=== PATIENT | female | born 1990 | race Caucasian/White ===

== ENCOUNTER → 2016-06-07 | Outpatient (CLI) | payer MEDICAID | LOC: FIMAGING 16:10 | PROVIDERS: ATTEND Orthopaedic Surgery | DX: S92.352A Displaced fracture of fifth metatarsal bone, left foot, initial encounter for closed fracture (principal); R60.9 Edema, unspecified; M71.572 Other bursitis, not elsewhere classified, left ankle and foot ==

== ENCOUNTER 2016-07-18 11:30 | Day surgery (SDC) | payer MEDICAID ==
[2016-07-18] MEDS ORDERED: CHLORHEXIDINE GLUC HIBICLENS 118 ML BTL TP ONE (12:00)
[2016-07-18] MEDS ORDERED: ceFAZolin 2 GM/DEXTROSE 100 ML IV ONE (12:00)
[2016-07-18] MEDS ORDERED: OXYCODONE/APAP 5/325 TAB PO PRN (12:03)
[2016-07-18] MEDS ORDERED: ONDANSETRON 4 MG/2 ML VIAL IVP PRN (12:03)
[2016-07-18] MEDS ORDERED: ONDANSETRON DISINTEGRATING 4 MG TAB PO PRN (12:04)
[2016-07-18] MEDS ORDERED: LIDOCAINE 1% 2 ML INJ ONE (12:04)
[2016-07-18] MEDS ORDERED: BUPIVACAINE 0.5% 30 ML SDV ONE (12:59)
[2016-07-18] MEDS ORDERED: LR 1,000 ML IV ONE (13:02)
[2016-07-18] MEDS ORDERED: LIDOCAINE 1% 5 ML SDV ID PRN (13:02)
[2016-07-18] MEDS ORDERED: PROPOFOL 200 MG/20 ML VIAL ONE (13:11)
[2016-07-18] MEDS ORDERED: fentaNYL 100 MCG/2 ML INJ ONE ×3 (13:13→15:34)
[2016-07-18] MEDS ORDERED: MIDAZOLAM 2 MG/2 ML VIAL ONE ×2 (13:25→15:13)
[2016-07-18] MEDS ORDERED: ROPIVACAINE HCL 150 MG/30 ML INJ ONE (14:00)
[2016-07-18] MEDS ORDERED: ONDANSETRON 4 MG/2 ML VIAL ONE (14:00)
[2016-07-18] MEDS ORDERED: LIDOCAINE 2% 5 ML SDV ONE (14:00)
[2016-07-18] MEDS ORDERED: DEXAMETHASONE 4 MG/ML VIAL ONE ×2 (14:00)
[2016-07-18] MEDS ORDERED: HYDROmorphONE/DILAUDID 1 MG/ML SYR ONE (15:34)
[2016-07-18] MEDS ORDERED: HYDROmorphONE/DILAUDID 2 MG/ML INJ ONE (16:32)
--- NOTE | 2016-07-19 06:35 | GOP ---
[f rep st] OPERATIVE REPORT DATE OF OPERATION: 07/18/2016 SURGEON: Tito Gresham MD INSTRUCTION DEAN: Harpreet Galarza SA ANESTHESIA: General with a popliteal block. PREOPERATIVE DIAGNOSIS: Left ankle instability, peroneal tendinitis and anterior impingement. POSTOPERATIVE DIAGNOSIS: Left ankle instability, peroneal tendinitis and anterior impingement. PROCEDURE PERFORMED: 1. Left ankle arthroscopy with extensive debridement. 2. Left ankle peroneal debridement. 3. Left ankle Brostrom procedure. FINDINGS: SPECIMENS: Condition stable. ESTIMATED BLOOD LOSS: 5 mL. INDICATIONS: This is a 25-year-old female with symptomatic ankle instability, impingement and peroneal tendonitis. She failed conservative management including therapy. She has elected to proceed with the above-mentioned surgery. Discussed risks of incomplete pain relief, nerve injury, wound complications, vessel injury, a cartilage injury, fracture and she elected to proceed. Informed consent obtained. All questions answered. She was marked preoperatively. DESCRIPTION OF PROCEDURE: She was taken to the operative suite. Blocks administered per Anesthesia. She was positioned, sterilely prepped and draped in normal fashion. Time-out was performed verifying site, side, location and agreed by all members of the team. The procedure was begun by insufflating the joint. After tourniquet was inflated, I established a medial portal and the a lateral portal with localization. She had synovitis in the front of her ankle, which was extensive. She had this in the medial and lateral gutters as well and I debrided this completing an extensive debridement. I did not feel she needed a bony decompression. I then removed the distraction and took her through range of motion. Loading this, I did not feel she had any more impingement either of bony or soft tissue. A longitudinal incision made over the fibula. I dissected both anterior- posterior to this. I opened up the peroneal sheath posteriorly, leaving the lower part of the retinaculum intact, brought the peroneals out, inspected these. It had synovitis around each tendon, which was debrided. However, the tendons themselves appeared intact and not having longitudinal split. I do not feel that a repair needed to be performed. Of note, the tendons were replaced back in the sheath and they moved nicely and then I over sewed the retinaculum. The lateral ankle ligaments were taken off the fibula. This redundant thickened portion of the ligaments was removed. Inspected the ankle joint cartilage on the side and this looked good. I then identified the peroneals, protected these. I placed a Krackow stitch in the footprint of the ATFL, as well as the CFL. I then drilled holes with push locks in the fibula and then placed push locks in these sequentially, holding the ankle in a reduced position. This tightened her ankle up significantly. I oversewed this with #1 Vicryl, 0 Vicryl, and closed I closed her with 2-0 Vicryl, 2-0 Monocryl, and Dermabond. She was taken to PACU in stable condition. COMPLICATIONS: None. DRAINS: None. /[id number]/MODL MTDD
== END 2016-07-18 19:35 | disposition home or self-care (01) ==
LOC: FSGY 11:30
PROVIDERS: ATTEND Orthopaedic Surgery
DX: M25.372 Other instability, left ankle (principal); M76.72 Peroneal tendinitis, left leg; M25.872 Other specified joint disorders, left ankle and foot
CPT/HCPCS: C1713; J0690; J1100; J1170; J2250; J2405; J2704; J2795; J3010

== ENCOUNTER 2017-06-18 13:33 | Emergency (ER) | payer MEDICAID ==
[2017-06-18] MEDS ORDERED: ONDANSETRON 4 MG/2 ML VIAL IVP ONE ×2 (14:23→14:45)
[2017-06-18] MEDS ORDERED: NS 1,000 ML IV ONE (14:23)
[2017-06-18 14:42] LABS: PLATELET COUNT 288 10^3/uL (150-400)
[2017-06-18] MEDS ORDERED: LORazepam 2 MG/ML INJ IVP ONE (14:45)
--- NOTE | 2017-06-18 14:48 | EDPHY ---
H & P Stated Complaint: lower abdominal and bilateral groin pain Time Seen by Provider: 06/18/17 14:32 HPI/ROS: CHIEF COMPLAINT: Suprapubic abdominal pain HISTORY OF PRESENT ILLNESS: 26-year-old female with history of recurrent ovarian cyst, remote history of appendectomy, last menstrual period 3 weeks ago , complaining of sudden onset sharp stabbing suprapubic abdominal pain since this morning with associated nausea, vomiting. No radiation of pain. Feels similar to prior ovarian cyst. Denies: Urinary abnormality, bowel movement abnormality, melena, hematochezia, chest pain, trauma, fever, chills. REVIEW OF SYSTEMS: A ten point review of systems was performed and is negative with the exception of the items mentioned in the HPI PAST MEDICAL & SURGICAL HISTORY: Appendectomy. Recurrent ovarian cyst. SOCIAL HISTORY:Nonsmoker PHYSICAL EXAM (Prior to examination, patient consented to physical exam, hands were washed and my usual and customary physical exam procedures followed) 1) GENERAL: Well-developed, well-nourished, alert and oriented. Appears uncomfortable, crying, hyperventilating, guarding abdomen. 2) HEAD: Normocephalic, atraumatic 3) HEENT: Pupils equal, round, reactive to light bilaterally. Sclera anicteric. Nasopharynx, oropharynx, clear, no lesions. Moist mucous membranes 4) NECK: Full range of motion, no meningeal signs. 5) LUNGS: Clear auscultation bilaterally, no wheezes, no rhonchi, no retractions. 6) HEART: Regular rate and rhythm, no murmur, no heave, no gallop. 7) ABDOMEN: Guarding abdomen, tender to palpation suprapubic region. Negative peritoneal., 8) MUSCULOSKELETAL: Moving all extremities, no focal areas of tenderness, no obvious trauma. No peripheral edema or discoloration. 9) BACK: No CVA tenderness, no midline vertebral tenderness, no fluctuance, no step-off, no obvious trauma, no visual or palpable abnormality. 10) SKIN: No rash, no petechiae. 11) Psychiatric: Patient is oriented X 3, there is no agitation. DIFFERENTIAL DIAGNOSIS: My differential diagnosis includes, but is not limited to, acute appendicitis, acute cholecystitis, bowel obstruction, acute pancreatitis, ovarian torsion, ectopic , gastritis and urinary tract infection. The patient understands that this diagnosis is provisional and can never be 100% accurate. This is a partial list of diagnoses considered. These considerations are based on history, physical exam, past history and reassessment. - Personal History LMP (Females 10-55): 22-28 Days Ago Current Tetanus/Diphtheria Vaccine: Unsure Current Tetanus Diphtheria and Acellular Pertussis (TDAP): Unsure - Medical/Surgical History Hx Asthma: No Hx Chronic Respiratory Disease: No Hx Diabetes: No Hx Cardiac Disease: No Hx Renal Disease: No Hx Cirrhosis: No Hx Alcoholism: No Hx HIV/AIDS: No Hx Splenectomy or Spleen Trauma: No Other PMH: fibroids, endometriosis - Social History Smoking Status: Light smoker Constitutional: Initial Vital Signs Temperature (C) 36.9 C 06/18/17 13:37 Heart Rate 114 H 06/18/17 13:37 Respiratory Rate 22 H 06/18/17 13:37 Blood Pressure 106/96 H 06/18/17 13:37 O2 Sat (%) 96 06/18/17 13:37 O2 Delivery Mode Room Air Allergies/Adverse Reactions: No Known Allergies Allergy (Verified 06/18/17 13:36) Home Medications: Medication Instructions Recorded Adderall 10 MG (*) 06/20/16 BENADRYL 06/20/16 ACETAMINOPHEN 07/18/16 Aleve 220 MG (*) 07/18/16 Ibuprofen 07/18/16 Hydrocodone/APAP 5/325 [[place] 1 tab PO Q6 PRN #10 tab 06/18/17 5/325 (RX)] Hydroxyzine HCl 06/18/17 Medical Decision Making - Diagnostics Imaging Results: Imaging Impressions Pelvic/Renal Ultrasound 06/18/17 14:45 Impression: 1. Partially collapsed right ovarian cyst may represent involuting corpus luteum or post hemorrhagic cyst. Free fluid is asymmetrically more prominent on the right side as well. 2. Persistent thickening of the endometrium. Patient has a history of benign endometrial biopsy. 3. Small intramural fibroid. ED Course/Re-evaluation: 4:29 p.m.: Re-evaluation with serial examinations. At this time she is resting comfortably, pain is controlled. Reviewed her laboratory and diagnostic results with her showing an involuting right ovarian cyst. No evidence of torsion. She is not . Doubt acute surgical abdominal pathology. She feels comfortable being discharged. She has not have an OBGYN I have provided her referral information for on-call OBGYN. She feels comfortable being discharged. Usual and customary abdominal precautions instructions provided. Care of patient under supervision of secondary supervising physician Dr Forrester. - Data Points Laboratory Results: Laboratory Results 06/18/17 14:36 06/18/17 14:36 06/18/17 06/18/17 06/18/17 14:36 14:36 14:20 WBC 6.86 10^3/uL 10^3/uL (3.80-9.50) RBC 4.55 10^6/uL 10^6/uL (4.18-5.33) Hgb 13.9 g/dL g/dL (12.6-16.3) Hct 41.5 % % (38.0-47.0) MCV 91.2 fL fL (81.5-99.8) MCH 30.5 pg pg (27.9-34.1) MCHC 33.5 g/dL g/dL (32.4-36.7) RDW 11.9 % % (11.5-15.2) Plt Count 288 10^3/uL 10^3/uL (150-400) MPV 9.4 fL fL (8.7-11.7) Neut % (Auto) 58.1 % % (39.3-74.2) Lymph % (Auto) 27.7 % % (15.0-45.0) [place] % (Auto) 7.3 % % (4.5-13.0) Eos % (Auto) 6.0 % % (0.6-7.6) Baso % (Auto) 0.6 % % (0.3-1.7) Nucleat RBC Rel Count 0.0 % % (0.0-0.2) Absolute Neuts (auto) 3.99 10^3/uL 10^3/uL (1.70-6.50) Absolute Lymphs (auto) 1.90 10^3/uL 10^3/uL (1.00-3.00) Absolute Monos (auto) 0.50 10^3/uL 10^3/uL (0.30-0.80) Absolute Eos (auto) 0.41 10^3/uL H 10^3/uL (0.03-0.40) Absolute Basos (auto) 0.04 10^3/uL 10^3/uL (0.02-0.10) Absolute Nucleated RBC 0.00 10^3/uL 10^3/uL (0-0.01) Immature Gran % 0.3 % % (0.0-1.1) Immature Gran # 0.02 10^3/uL 10^3/uL (0.00-0.10) Sodium 142 mEq/L mEq/L (135-145) Potassium 4.5 mEq/L mEq/L (3.5-5.2) Chloride 109 mEq/L mEq/L (97-110) Carbon Dioxide 21 mEq/l L mEq/l (22-31) Anion Gap 12 mEq/L mEq/L (8-16) BUN 9 mg/dL mg/dL (7-23) Creatinine 0.6 mg/dL mg/dL (0.6-1.0) Estimated GFR > 60 Glucose 78 mg/dL mg/dL (70-100) Calcium 9.5 mg/dL mg/dL (8.5-10.4) Total Bilirubin 0.6 mg/dL mg/dL (0.1-1.4) Conjugated Bilirubin 0.3 mg/dL mg/dL (0.0-0.5) Unconjugated Bilirubin 0.3 mg/dL mg/dL (0.0-1.1) AST 24 IU/L IU/L (14-46) ALT 39 IU/L IU/L (9-52) Alkaline Phosphatase 59 IU/L IU/L (38-126) Total Protein 7.0 g/dL g/dL (6.3-8.2) Albumin 4.4 g/dL g/dL (3.5-5.0) Lipase 55 IU/L IU/L (23-300) Urine Color YELLOW Urine Appearance CLEAR Urine pH 6.0 (5.0-7.5) Ur Specific [place] 1.008 (1.002-1.030) Urine Protein NEGATIVE (NEGATIVE) Urine Ketones NEGATIVE (NEGATIVE) Urine Blood 1+ H (NEGATIVE) Urine Nitrate NEGATIVE (NEGATIVE) Urine Bilirubin NEGATIVE (NEGATIVE) Urine Urobilinogen NEGATIVE EU EU (0.2-1.0) Ur Leukocyte Esterase NEGATIVE (NEGATIVE) Urine RBC 1-3 /hpf /hpf (0-3) Urine WBC 1-3 /hpf /hpf (0-3) Ur Epithelial Cells TRACE /lpf /lpf (NONE-1+) Urine Bacteria 2+ /hpf H /hpf (NONE SEEN) Urine Mucus TRACE /lpf /lpf (NONE-1+) Urine Glucose NEGATIVE (NEGATIVE) Urine Test 06/18/17 14:20 WBC RBC Hgb Hct MCV MCH MCHC RDW Plt Count MPV Neut % (Auto) Lymph % (Auto) [place] % (Auto) Eos % (Auto) Baso % (Auto) Nucleat RBC Rel Count Absolute Neuts (auto) Absolute Lymphs (auto) Absolute Monos (auto) Absolute Eos (auto) Absolute Basos (auto) Absolute Nucleated RBC Immature Gran % Immature Gran # Sodium Potassium Chloride Carbon Dioxide Anion Gap BUN Creatinine Estimated GFR Glucose Calcium Total Bilirubin Conjugated Bilirubin Unconjugated Bilirubin AST ALT Alkaline Phosphatase Total Protein Albumin Lipase Urine Color Urine Appearance Urine pH Ur Specific [place] Urine Protein Urine Ketones Urine Blood Urine Nitrate Urine Bilirubin Urine Urobilinogen Ur Leukocyte Esterase Urine RBC Urine WBC Ur Epithelial Cells Urine Bacteria Urine Mucus Urine Glucose Urine Test NEGATIVE Medications Given: Discontinued Medications Sodium Chloride (Ns) 1,000 mls @ 0 mls/hr IV ONCE ONE PRN Reason: Wide Open Stop: 06/18/17 14:24 Last Admin: 06/18/17 14:34 Dose: 1,000 mls Ketorolac Tromethamine (Toradol) 15 mg IVP EDNOW ONE Stop: 06/18/17 16:09 Last Admin: 06/18/17 16:12 Dose: 15 mg Lorazepam (Ativan Injection) 1 mg IVP EDNOW ONE Stop: 06/18/17 14:46 Last Admin: 06/18/17 14:49 Dose: 1 mg Morphine Sulfate (Morphine) 4 mg IVP EDNOW ONE Stop: 06/18/17 14:46 Last Admin: 06/18/17 14:48 Dose: 4 mg Morphine Sulfate (Morphine) 4 mg IVP EDNOW ONE Stop: 06/18/17 16:09 Last Admin: 06/18/17 16:12 Dose: 4 mg Ondansetron HCl (Zofran) 4 mg IVP EDNOW ONE Stop: 06/18/17 14:24 Last Admin: 06/18/17 14:35 Dose: 4 mg Ondansetron HCl (Zofran) 4 mg IVP EDNOW ONE Stop: 06/18/17 14:46 Last Admin: 06/18/17 14:49 Dose: Not Given Departure - Departure Disposition: Home, Routine, Self-Care Clinical Impression: Ovarian cyst Qualifiers: Laterality: right Qualified Code(s): N83.201 - Unspecified ovarian cyst, right side Condition: Good Instructions: Ovarian Cyst (ED) Additional Instructions: Seek immediate medical attention if you develop new or worsening symptoms, if you develop fevers, chills, inability to tolerate oral intake or any other symptoms that concerns you. Referrals: Luciano Mcfadden MD [Medical Doctor] - 2-3 days, call for appt. (Dr. Mcfadden is an OBGYN) Prescriptions: Hydrocodone/APAP 5/325 [[place] 5/325 (RX)] 1 tab PO Q6 PRN #10 tab PRN Reason: Pain, Severe
[2017-06-18] MEDS ORDERED: KETOROLAC 15 MG/1 ML SDV IVP ONE (16:08)
[2017-06-18 16:39] VITALS: BP 106/77
== END 2017-06-18 16:42 | disposition home or self-care (01) ==
DX: N83.201 Unspecified ovarian cyst, right side (principal); F17.200 Nicotine dependence, unspecified, uncomplicated
CPT/HCPCS: 96374; J1885; J2060; J2270; J2405

== ENCOUNTER 2017-08-20 16:19 | Emergency (ER) | payer MEDICAID ==
[2017-08-20] MEDS ORDERED: LORazepam 2 MG/ML INJ IVP ONE (16:41)
[2017-08-20] MEDS ORDERED: KETOROLAC 15 MG/1 ML SDV IVP ONE (16:41)
[2017-08-20] MEDS ORDERED: NS 1,000 ML IV ONE (16:41)
[2017-08-20] MEDS ORDERED: ONDANSETRON 4 MG/2 ML VIAL IVP ONE ×2 (16:41→18:11)
--- NOTE | 2017-08-20 16:47 | EDPHY ---
H & P Stated Complaint: Bilat lower abdo pain since Sunday. Time Seen by Provider: 08/20/17 16:32 HPI/ROS: CHIEF COMPLAINT: Suprapubic pain HISTORY OF PRESENT ILLNESS: 26-year-old female with history of recurrent ovarian cyst, history of endometriosis, uterine fibroids, remote history of appendectomy, last menstrual period 25 days ago, complaining of 2 days of suprapubic abdominal pain, nausea, vomiting. Feels similar to her prior episodes of ovarian cyst. She was seen the ER 06/18/2017 for similar complaint. He states that this feels same as that episode. She has been unable to tolerate oral intake for the past 2 days. Bowel movements have been normal. Urine output has been decreased. No dysuria no hematuria , no increased frequency. No back or flank pain. No fever or chills PRIMARY CARE PROVIDER: REVIEW OF SYSTEMS: A ten point review of systems was performed and is negative with the exception of the items mentioned in the HPI PAST MEDICAL & SURGICAL HISTORY: No pertinent medical or surgical history SOCIAL HISTORY:Nonsmoker PHYSICAL EXAM (Prior to examination, patient consented to physical exam, hands were washed and my usual and customary physical exam procedures followed) 1) GENERAL: Well-developed, well-nourished, alert and oriented. Appears to be in no acute distress. 2) HEAD: Normocephalic, atraumatic 3) HEENT: Pupils equal, round, reactive to light bilaterally. Sclera anicteric. Nasopharynx, oropharynx, clear, no lesions. Dry mucous membranes 4) NECK: Full range of motion, no meningeal signs. 5) LUNGS: Clear auscultation bilaterally, no wheezes, no rhonchi, no retractions. 6) HEART: Regular rate and rhythm, no murmur, no heave, no gallop. 7) ABDOMEN: No guarding, tender to palpation suprapubic region, negative McBurney's, negative Castro's, negative Rovsing's, negative peritoneal sign, 8) MUSCULOSKELETAL: Moving all extremities, no focal areas of tenderness, no obvious trauma. No peripheral edema or discoloration. 9) BACK: No CVA tenderness 10) SKIN: No rash, no petechiae. 11) Psychiatric: Patient is oriented X 3, there is no agitation. DIFFERENTIAL DIAGNOSIS: My differential diagnosis includes, but is not limited to, acute appendicitis, acute cholecystitis, bowel obstruction, acute pancreatitis, ovarian torsion, ectopic , gastritis and urinary tract infection. The patient understands that this diagnosis is provisional and can never be 100% accurate. This is a partial list of diagnoses considered. These considerations are based on history, physical exam, past history and reassessment. - Personal History LMP (Females 10-55): 22-28 Days Ago Current Tetanus Diphtheria and Acellular Pertussis (TDAP): Unsure - Medical/Surgical History Hx Asthma: No Hx Chronic Respiratory Disease: No Hx Diabetes: No Hx Cardiac Disease: No Hx Renal Disease: No Hx Cirrhosis: No Hx Alcoholism: No Hx HIV/AIDS: No Hx Splenectomy or Spleen Trauma: No Other PMH: fibroids, endometriosis. - Social History Smoking Status: Light smoker Constitutional: Initial Vital Signs Temperature (C) 36.7 C 08/20/17 16:20 Heart Rate 63 08/20/17 16:20 Respiratory Rate 18 08/20/17 16:20 Blood Pressure 143/95 H 08/20/17 16:20 O2 Sat (%) 99 08/20/17 16:20 O2 Delivery Mode Room Air Allergies/Adverse Reactions: No Known Allergies Allergy (Verified 06/18/17 13:36) Home Medications: Medication Instructions Recorded Adderall 10 MG (*) 06/20/16 BENADRYL 06/20/16 ACETAMINOPHEN 07/18/16 Aleve 220 MG (*) 07/18/16 Ibuprofen 07/18/16 Hydrocodone/APAP 5/325 [[place] 1 tab PO Q6 PRN #10 tab 06/18/17 5/325 (RX)] Hydroxyzine HCl 06/18/17 Ondansetron Odt [Zofran Odt] 4 mg PO Q4PRN PRN #10 tab 08/20/17 oxyCODONE/APAP 5/325 [Percocet 1 tab PO Q6 #10 tab 08/20/17 5/325] Medical Decision Making - Diagnostics Imaging Results: Imaging Impressions Pelvic/Renal Ultrasound 08/20/17 16:42 Impression: 1. No ovarian torsion or significant free fluid. 2. Bilateral hypoechoic ovarian cysts with internal echoes, two in the right ovary measuring up to 2.5 x 2.4 x 2.1 cm, and one in the left measuring 2.9 x 2.7 x 2.3 cm, with the left ovarian complex cyst appearing larger since the ultrasound in June 2017, representing hemorrhagic cysts versus endometriomas. 3. Posterior fundal uterine fibroid measuring 1.6 x 1.6 x 1.6 cm, similar to the previous study. 4. Abnormal endometrial thickening measuring 24 mm. Findings and recommendations discussed with Emergency Department physician, Gregory Vu PA-C at 1751 hours on August 20, 2017. Final report concurs with initial preliminary interpretation. Images reviewed by myself ED Course/Re-evaluation: Re-evaluation with serial exams. Her pain and nausea are controlled. Discussed her diagnostic results. Doubt ovarian torsion, doubt ectopic , doubt acute surgical abdominal pathology. Highly recommend she follow-up with OBGYN. She informs me that she has an appointment with her OBGYN tomorrow. I strongly recommend she keep this appointment. Given copies of her diagnostic studies. Usual customary abdominal precautions instructions provided. I saw this patient independently based on established practice protocols. Care of patient under supervision of secondary supervising physician Dr Leon . - Data Points Laboratory Results: Laboratory Results 08/20/17 16:29 08/20/17 16:29 08/20/17 08/20/17 08/20/17 16:29 16:29 16:29 WBC RBC Hgb Hct MCV MCH MCHC RDW Plt Count MPV Neut % (Auto) Lymph % (Auto) [place] % (Auto) Eos % (Auto) Baso % (Auto) Nucleat RBC Rel Count Absolute Neuts (auto) Absolute Lymphs (auto) Absolute Monos (auto) Absolute Eos (auto) Absolute Basos (auto) Absolute Nucleated RBC Immature Gran % Immature Gran # Sodium 139 mEq/L mEq/L (135-145) Potassium 3.9 mEq/L mEq/L (3.3-5.0) Chloride 104 mEq/L mEq/L (97-110) Carbon Dioxide 24 mEq/l mEq/l (22-31) Anion Gap 11 mEq/L mEq/L (8-16) BUN 11 mg/dL mg/dL (7-23) Creatinine 0.7 mg/dL mg/dL (0.6-1.0) Estimated GFR > 60 Glucose 82 mg/dL mg/dL (70-100) Calcium 9.6 mg/dL mg/dL (8.5-10.4) Total Bilirubin 0.4 mg/dL mg/dL (0.1-1.4) Conjugated Bilirubin 0.2 mg/dL mg/dL (0.0-0.5) Unconjugated Bilirubin 0.2 mg/dL mg/dL (0.0-1.1) AST 23 IU/L IU/L (14-46) ALT 29 IU/L IU/L (9-52) Alkaline Phosphatase 91 IU/L IU/L (38-126) Total Protein 7.8 g/dL g/dL (6.3-8.2) Albumin 4.6 g/dL g/dL (3.5-5.0) Lipase 110 IU/L IU/L (23-300) Beta HCG, Qual NEGATIVE Urine Color YELLOW Urine Appearance CLEAR Urine pH 6.0 (5.0-7.5) Ur Specific [place] 1.010 (1.002-1.030) Urine Protein NEGATIVE (NEGATIVE) Urine Ketones TRACE H (NEGATIVE) Urine Blood 1+ H (NEGATIVE) Urine Nitrate NEGATIVE (NEGATIVE) Urine Bilirubin NEGATIVE (NEGATIVE) Urine Urobilinogen NEGATIVE EU EU (0.2-1.0) Ur Leukocyte Esterase NEGATIVE (NEGATIVE) Urine RBC 1-3 /hpf /hpf (0-3) Urine WBC 1-3 /hpf /hpf (0-3) Ur Epithelial Cells TRACE /lpf /lpf (NONE-1+) Urine Bacteria 1+ /hpf H /hpf (NONE SEEN) Urine Mucus TRACE /lpf /lpf (NONE-1+) Urine Glucose NEGATIVE (NEGATIVE) 08/20/17 16:29 WBC 7.77 10^3/uL 10^3/uL (3.80-9.50) RBC 4.51 10^6/uL 10^6/uL (4.18-5.33) Hgb 13.8 g/dL g/dL (12.6-16.3) Hct 41.4 % % (38.0-47.0) MCV 91.8 fL fL (81.5-99.8) MCH 30.6 pg pg (27.9-34.1) MCHC 33.3 g/dL g/dL (32.4-36.7) RDW 13.3 % % (11.5-15.2) Plt Count 359 10^3/uL 10^3/uL (150-400) MPV 9.1 fL fL (8.7-11.7) Neut % (Auto) 52.9 % % (39.3-74.2) Lymph % (Auto) 35.8 % % (15.0-45.0) [place] % (Auto) 7.1 % % (4.5-13.0) Eos % (Auto) 3.7 % % (0.6-7.6) Baso % (Auto) 0.4 % % (0.3-1.7) Nucleat RBC Rel Count 0.0 % % (0.0-0.2) Absolute Neuts (auto) 4.11 10^3/uL 10^3/uL (1.70-6.50) Absolute Lymphs (auto) 2.78 10^3/uL 10^3/uL (1.00-3.00) Absolute Monos (auto) 0.55 10^3/uL 10^3/uL (0.30-0.80) Absolute Eos (auto) 0.29 10^3/uL 10^3/uL (0.03-0.40) Absolute Basos (auto) 0.03 10^3/uL 10^3/uL (0.02-0.10) Absolute Nucleated RBC 0.00 10^3/uL 10^3/uL (0-0.01) Immature Gran % 0.1 % % (0.0-1.1) Immature Gran # 0.01 10^3/uL 10^3/uL (0.00-0.10) Sodium Potassium Chloride Carbon Dioxide Anion Gap BUN Creatinine Estimated GFR Glucose Calcium Total Bilirubin Conjugated Bilirubin Unconjugated Bilirubin AST ALT Alkaline Phosphatase Total Protein Albumin Lipase Beta HCG, Qual Urine Color Urine Appearance Urine pH Ur Specific [place] Urine Protein Urine Ketones Urine Blood Urine Nitrate Urine Bilirubin Urine Urobilinogen Ur Leukocyte Esterase Urine RBC Urine WBC Ur Epithelial Cells Urine Bacteria Urine Mucus Urine Glucose Medications Given: Discontinued Medications Hydromorphone HCl (Dilaudid) 1 mg IVP EDNOW ONE Stop: 08/20/17 17:32 Last Admin: 08/20/17 17:34 Dose: 1 mg Sodium Chloride (Ns) 1,000 mls @ 0 mls/hr IV ONCE ONE PRN Reason: Wide Open Stop: 08/20/17 16:42 Last Admin: 08/20/17 16:48 Dose: 1,000 mls Ketorolac Tromethamine (Toradol) 15 mg IVP EDNOW ONE Stop: 08/20/17 16:42 Last Admin: 08/20/17 16:47 Dose: 15 mg Lorazepam (Ativan Injection) 1 mg IVP EDNOW ONE Stop: 08/20/17 16:42 Last Admin: 08/20/17 16:48 Dose: 1 mg Ondansetron HCl (Zofran) 4 mg IVP EDNOW ONE Stop: 08/20/17 16:42 Last Admin: 08/20/17 16:47 Dose: 4 mg Ondansetron HCl (Zofran) 4 mg IVP EDNOW ONE Stop: 08/20/17 18:12 Last Admin: 08/20/17 18:13 Dose: 4 mg Departure - Departure Disposition: Home, Routine, Self-Care Clinical Impression: Endometriosis Uterine fibroid Qualifiers: Uterine leiomyoma location: unspecified location Qualified Code(s): D25.9 - Leiomyoma of uterus, unspecified Condition: Good Instructions: Endometriosis (ED) Additional Instructions: Return to the emergency department if you develop new or worsening symptoms, inability to tolerate oral intake or any other symptoms that concern you Referrals: keep, your appointment with your private duty rn tomorrow [Other] - As per Instructions Prescriptions: Ondansetron Odt [Zofran Odt] 4 mg PO Q4PRN PRN #10 tab PRN Reason: Nausea oxyCODONE/APAP 5/325 [Percocet 5/325] 1 tab PO Q6 #10 tab
[2017-08-20 16:50] LABS: PLATELET COUNT 359 10^3/uL (150-400)
[2017-08-20] MEDS ORDERED: HYDROmorphONE/DILAUDID 1 MG/ML INJ IVP ONE (17:31)
[2017-08-20] MEDS ORDERED: ONDANSETRON 4 MG/2 ML VIAL ONE (18:10)
[2017-08-20 18:14] VITALS: BP 115/65
== END 2017-08-20 19:00 | disposition home or self-care (01) ==
DX: N80.9 Endometriosis, unspecified (principal); D25.9 Leiomyoma of uterus, unspecified; F17.200 Nicotine dependence, unspecified, uncomplicated; R11.10 Vomiting, unspecified; Z90.89 Acquired absence of other organs
CPT/HCPCS: 96374; J1170; J1885; J2060; J2405

== ENCOUNTER 2017-08-21 20:09 | Emergency (ER) | payer MEDICAID ==
--- NOTE | 2017-08-21 20:44 | EDPHY ---
H & P Stated Complaint: vomiting- worsening pain since lat night Time Seen by Provider: 08/21/17 20:27 HPI/ROS: CHIEF COMPLAINT: Abdominal pain, vomiting HISTORY OF PRESENT ILLNESS: The patient is a 26 y/o female with a history of recurrent ovarian cysts and uterine fibroids arriving with her girlfriend complaining of persisting abdominal pain and vomiting worsening since she began menstruating this afternoon about 5.5 hours ago. She developed suprapubic abdominal pain on Sunday, 3 days ago, and came to the ED yesterday for evaluation. A pelvic US at that time showed bilateral ovarian cysts, no torsion or free fluid. She was discharged with Percocet and recommendation to follow up with her OBGYN today, which she did. The OBGYN performed a pelvic exam and noticed adnexal tenderness per the patient. The physician attributed her symptoms to fibroids, cysts, and possible endometriosis, though the patient has not been formally diagnosed with endometriosis. She recommended starting control, but the patient is reluctant to start medication and wants "to research it first." This afternoon she began menstruating "and within that half-hour the most excruciating pain ever like that feeling when you first break a bone and you lose your wind" and "my vagina and rectum feel like they're falling out of my body." She normally has painful periods manageable with ibuprofen, but her pain has only been partially controlled with Percocet. The pain is diffuse but worse in her lower abdomen. Nothing seems to make it appreciably better or worse. She has also vomited several times today and is unable to keep food down. No fever, urinary symptoms, trauma. REVIEW OF SYSTEMS: A ten point review of systems was performed and is negative with the exception of the items mentioned in the HPI. Past medical history: 1. Recurrent ovarian cysts with rupture 2. Uterine fibroids 3. ADHD - Adderall 4. Anxiety - Hydroxyzine Past surgical history: Appendectomy Family history: Noncontributory Social history: Girlfriend at bedside. Occasional tobacco use. Drinks alcohol socially. 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 OBGYN: [facility] General Appearance: Alert. Tearful. Vital signs reviewed. Blood pressure 132/ 97. Eyes: Pupils equal and round, no conjunctival injection, no discharge. Anicteric. ENT, Mouth: Mucous membranes are moist, no oropharyngeal erythema or edema. Neck: No lymphadenopathy, supple. Respiratory: Lungs are clear to auscultation; no wheezes, rales, or rhonchi. Cardiovascular: Regular rate and rhythm; no murmur, rub, or gallop. Gastrointestinal: Abdomen is soft and diffusely, tender worse in LLQ, no guarding, no masses or organomegaly. Skin: Warm and dry, no rashes on exposed skin, normal color. Back: Nontender to palpation over the thoracolumbar spine. No CVAT. Extremities: No lower extremity edema, no calf tenderness or swelling. Neurological: Alert and oriented. Moving all four extremities easily and equally. Psychiatric: Normal affect. - Personal History LMP (Females 10-55): Now - Medical/Surgical History Hx Asthma: No Hx Chronic Respiratory Disease: No Hx Diabetes: No Hx Cardiac Disease: No Hx Renal Disease: No Hx Cirrhosis: No Hx Alcoholism: No Hx HIV/AIDS: No Hx Splenectomy or Spleen Trauma: No Other PMH: fibroids, endometriosis. - Social History Smoking Status: Light smoker Constitutional: Initial Vital Signs Temperature (C) 36.9 C 08/21/17 20:15 Heart Rate 89 08/21/17 20:15 Respiratory Rate 20 08/21/17 20:15 Blood Pressure 132/97 H 08/21/17 20:15 O2 Sat (%) 97 08/21/17 20:15 O2 Delivery Mode Room Air Allergies/Adverse Reactions: No Known Allergies Allergy (Verified 08/21/17 20:14) Home Medications: Medication Instructions Recorded Adderall 10 MG (*) 06/20/16 BENADRYL 06/20/16 ACETAMINOPHEN 07/18/16 Aleve 220 MG (*) 07/18/16 Ibuprofen 07/18/16 Hydrocodone/APAP 5/325 [[place] 1 tab PO Q6 PRN #10 tab 06/18/17 5/325 (RX)] Hydroxyzine HCl 06/18/17 Ondansetron Odt [Zofran Odt] 4 mg PO Q4PRN PRN #10 tab 08/20/17 oxyCODONE/APAP 5/325 [Percocet 1 tab PO Q6 #10 tab 08/20/17 5/325] Medical Decision Making ED Course/Re-evaluation: This is a 26 y/o female with history of uterine fibroids and recurrent ovarian cysts who presents with a 5.5-hour history of severe lower abdominal pain since she began menstruating in the setting of 3 days of lower abdominal pain and vomiting. OBGYN today examined her and recommended starting hormonal control for probable endometriosis, but the patient did not feel ready to pursue this. On exam she is tearful and has diffuse abdominal tenderness, worse on the right. No guarding. Plan for IV, symptomatic management, and pelvic US. 1L IV NS, 4mg IV Zofran, 15mg IV Toradol, and 1mg IV Dilaudid ordered. Given the abrupt worsening of her symptoms, will obtain pelvic ultrasound to assess for ovarian torsion. Pelvic US: Essentially unchanged from yesterday. Normal color flow, no evidence of torsion. I have chosen not to repeat laboratory work that was done yesterday. Her re-evaluated the patient at 10 40 p.m.. She had complained of a resurfacing of her pain just prior to that was given a 2nd dose of Dilaudid IV. We spoke at some length of about the possibility of her pain being due to endometriosis versus ovarian cysts. She was reassured that she does not have ovarian torsion. I have encouraged her to follow up with OBGYN and pursue the option of control pills, as recommended today. She feels that she can return home. She has oxycodone and Zofran at home, from last night's visit. Differential Diagnosis: Abdominal pain including but not limited to appendicitis, cholecystitis, gastritis, ovarian torsion, ruptured ovarian cysts, ectopic , and urinary tract infection. - Data Points Medications Given: Discontinued Medications Hydromorphone HCl (Dilaudid) 1 mg IVP EDNOW ONE Stop: 08/21/17 21:02 Last Admin: 08/21/17 21:25 Dose: 1 mg Sodium Chloride (Ns) 1,000 mls @ 0 mls/hr IV EDNOW ONE; Wide Open PRN Reason: Protocol Stop: 08/21/17 21:04 Last Admin: 08/21/17 21:21 Dose: 1,000 mls Ketorolac Tromethamine (Toradol) 15 mg IVP EDNOW ONE Stop: 08/21/17 21:02 Last Admin: 08/21/17 21:25 Dose: 15 mg Ondansetron HCl (Zofran) 4 mg IVP EDNOW ONE Stop: 08/21/17 21:01 Last Admin: 08/21/17 21:25 Dose: 4 mg Ondansetron HCl (Zofran) 4 mg IVP EDNOW ONE Stop: 08/21/17 22:17 Last Admin: 08/21/17 22:19 Dose: 4 mg Departure - Departure Disposition: Home, Routine, Self-Care Clinical Impression: Abdominal pain Qualifiers: Abdominal location: generalized Qualified Code(s): R10.84 - Generalized abdominal pain Condition: Good Instructions: Endometriosis (ED), Ovarian Cyst (ED) Additional Instructions: Use the Zofran that you have for nausea vomiting. You can let 1 of them dissolve under your tongue every 4 hr as needed. Continue with the oxycodone as needed. As we discussed, I think that an anti- inflammatory medication is most likely to be helpful for you. I recommend that you take ibuprofen 800 mg every 6-8 hours. Take this with some food. Please follow up with OBGYN. Dr. Fior Doshi is public information [facility] I am providing her name and phone number. Referrals: Fior Doshi, [Doctor of Osteopathy] - As per Instructions Report Scribed for: Maya Robbins Report Scribed by: Mandy Kebede Date of Report: 08/21/17 Time of Report: 20:46 Physician Review and Approval Statement: 08/21/17 20:44 Portions of this note were transcribed by the medical legal investigator. I, Dr. Maya Robbins, personally performed the history, physical exam, and medical decision- making; and confirmed the accuracy of the information in the transcribed note.
[2017-08-21] MEDS ORDERED: ONDANSETRON 4 MG/2 ML VIAL IVP ONE ×2 (21:00→22:16)
[2017-08-21] MEDS ORDERED: HYDROmorphONE/DILAUDID 2 MG/ML INJ IVP ONE (21:01)
[2017-08-21] MEDS ORDERED: KETOROLAC 30 MG/1 ML SDV IVP ONE (21:01)
[2017-08-21] MEDS ORDERED: NS 1,000 ML IV ONE (21:03)
[2017-08-21 23:03] VITALS: BP 127/72
== END 2017-08-21 23:05 | disposition home or self-care (01) ==
DX: R10.84 Generalized abdominal pain (principal); E86.9 Volume depletion, unspecified; F17.200 Nicotine dependence, unspecified, uncomplicated; Z90.49 Acquired absence of other specified parts of digestive tract
CPT/HCPCS: 96374; J1170; J1885; J2405

== ENCOUNTER → 2017-11-27 | Outpatient (CLI) | payer MEDICAID | LOC: CIMAGING 11:27 | PROVIDERS: ATTEND Family Medicine | DX: S83.012A Lateral subluxation of left patella, initial encounter (principal) | CPT/HCPCS: 73562-PO ==

== ENCOUNTER → 2017-12-09 | Outpatient (CLI) | payer MEDICAID | LOC: FIMAGING 13:45 | PROVIDERS: ATTEND Orthopaedic Surgery | DX: M22.42 Chondromalacia patellae, left knee (principal); M22.3X2 Other derangements of patella, left knee; M76.52 Patellar tendinitis, left knee ==

== ENCOUNTER 2018-01-11 14:23 | Emergency (ER) | payer MEDICAID ==
[2018-01-11] MEDS ORDERED: ONDANSETRON DISINTEGRATING 4 MG TAB PO ONE (16:05)
[2018-01-11] MEDS ORDERED: NS 1,000 ML IV ONE (16:42)
--- NOTE | 2018-01-11 16:57 | EDPHY ---
H & P Stated Complaint: L flank pain x 1wk c periodic diarrhea, rash, weakness, pains in legs Time Seen by Provider: 01/11/18 16:48 HPI/ROS: CHIEF COMPLAINT: Back pain, abdominal pain, flu-like symptoms HISTORY OF PRESENT ILLNESS: The patient presents the ED with a one-week history of lower back pain. The patient describes primarily bilateral sacroiliac pain. She also feels she has developed a flu-like illness. She denies any vomiting or diarrhea. She denies significant respiratory symptoms. The patient has been taking [id number] medications without significant improvement of her symptoms. The patient denies dysuria. The patient denies recent surgery. She denies any acute numbness or weakness. The patient denies any history of fall or trauma. She denies bowel or bladder dysfunction. REVIEW OF SYSTEMS: A comprehensive 10 point review of systems is otherwise negative aside from elements mentioned in the history of present illness. Source: Patient Exam Limitations: No limitations - Personal History Current Tetanus/Diphtheria Vaccine: Unsure - Medical/Surgical History Hx Asthma: No Hx Chronic Respiratory Disease: No Hx Diabetes: No Hx Cardiac Disease: No Hx Renal Disease: No Hx Cirrhosis: No Hx Alcoholism: No Hx HIV/AIDS: No Hx Splenectomy or Spleen Trauma: No Other PMH: fibroids, endometriosis.ovarian cysts, appendectomy, ankle surgery - Social History Smoking Status: Light smoker - Physical Exam Exam: General Appearance: Alert, no distress Eyes: Pupils equal and round no pallor or injection ENT, Mouth: Mucous membranes moist Respiratory: There are no retractions, lungs are clear to auscultation Cardiovascular: Regular rate and rhythm Gastrointestinal: Abdomen is soft and nontender, no masses, bowel sounds normal Neurological: A&O, normal motor function, normal sensory exam, normal cranial nerves Skin: Warm and dry, no rashes Musculoskeletal: Bilateral sacroiliac tenderness Extremities: symmetrical, full range of motion Psychiatric: Patient is oriented X 3, there is no agitation Constitutional: Initial Vital Signs Temperature (C) 37.2 C 01/11/18 14:41 Heart Rate 116 H 01/11/18 14:41 Respiratory Rate 18 01/11/18 14:41 Blood Pressure 142/104 H 01/11/18 14:41 O2 Sat (%) 97 01/11/18 14:41 O2 Delivery Mode Room Air Allergies/Adverse Reactions: No Known Allergies Allergy (Verified 01/11/18 14:41) Home Medications: Medication Instructions Recorded Adderall 10 MG (*) 06/20/16 BENADRYL 06/20/16 ACETAMINOPHEN 07/18/16 Aleve 220 MG (*) 07/18/16 Ibuprofen 07/18/16 Hydrocodone/APAP 5/325 [[place] 1 tab PO Q6 PRN #10 tab 06/18/17 5/325 (RX)] Hydroxyzine HCl 06/18/17 Ondansetron Odt [Zofran Odt] 4 mg PO Q4PRN PRN #10 tab 08/20/17 oxyCODONE/APAP 5/325 [Percocet 1 tab PO Q6 #10 tab 08/20/17 5/325] Medical Decision Making ED Course/Re-evaluation: The patient had an IV established. She received a L normal saline. Screening laboratory studies and urinalysis have been ordered. The patient was given Zofran. She was also given 1 mg of Ativan. The patient is noted to have a normal white blood cell count. Her metabolic panel is unremarkable. Patient's back pain is consistent with sacroiliitis. The patient did received Toradol in the emergency department. Urinalysis demonstrates no evidence of an infection or pyelonephritis. The patient's back pain seems to be mostly musculoskeletal in nature. I will provide the patient a prescription for Lidoderm patches. Differential Diagnosis: Differential diagnosis considered includes pyelonephritis, viral syndrome, mesenteric adenitis, ectopic - Data Points Laboratory Results: Laboratory Results 01/11/18 16:50 01/11/18 16:50 01/11/18 01/11/18 01/11/18 18:37 16:50 16:50 WBC 8.90 10^3/uL 10^3/uL (3.80-9.50) RBC 4.62 10^6/uL 10^6/uL (4.18-5.33) Hgb 14.0 g/dL g/dL (12.6-16.3) Hct 42.0 % % (38.0-47.0) MCV 90.9 fL fL (81.5-99.8) MCH 30.3 pg pg (27.9-34.1) MCHC 33.3 g/dL g/dL (32.4-36.7) RDW 12.4 % % (11.5-15.2) Plt Count 360 10^3/uL 10^3/uL (150-400) MPV 8.8 fL fL (8.7-11.7) Neut % (Auto) 60.1 % % (39.3-74.2) Lymph % (Auto) 31.0 % % (15.0-45.0) [place] % (Auto) 5.4 % % (4.5-13.0) Eos % (Auto) 2.9 % % (0.6-7.6) Baso % (Auto) 0.4 % % (0.3-1.7) Nucleat RBC Rel Count 0.0 % % (0.0-0.2) Absolute Neuts (auto) 5.34 10^3/uL 10^3/uL (1.70-6.50) Absolute Lymphs (auto) 2.76 10^3/uL 10^3/uL (1.00-3.00) Absolute Monos (auto) 0.48 10^3/uL 10^3/uL (0.30-0.80) Absolute Eos (auto) 0.26 10^3/uL 10^3/uL (0.03-0.40) Absolute Basos (auto) 0.04 10^3/uL 10^3/uL (0.02-0.10) Absolute Nucleated RBC 0.00 10^3/uL 10^3/uL (0-0.01) Immature Gran % 0.2 % % (0.0-1.1) Immature Gran # 0.02 10^3/uL 10^3/uL (0.00-0.10) Sodium 138 mEq/L mEq/L (135-145) Potassium 4.1 mEq/L mEq/L (3.3-5.0) Chloride 107 mEq/L mEq/L (97-110) Carbon Dioxide 23 mEq/l mEq/l (22-31) Anion Gap 8 mEq/L mEq/L (6-14) BUN 6 mg/dL L mg/dL (7-23) Creatinine 0.7 mg/dL mg/dL (0.6-1.0) Estimated GFR > 60 Glucose 79 mg/dL mg/dL (70-100) Calcium 9.8 mg/dL mg/dL (8.5-10.4) Urine Color YELLOW Urine Appearance CLEAR Urine pH 5.0 (5.0-7.5) Ur Specific Sells 1.009 (1.002-1.030) Urine Protein NEGATIVE (NEGATIVE) Urine Ketones NEGATIVE (NEGATIVE) Urine Blood 1+ H (NEGATIVE) Urine Nitrate NEGATIVE (NEGATIVE) Urine Bilirubin NEGATIVE (NEGATIVE) Urine Urobilinogen NEGATIVE EU EU (0.2-1.0) Ur Leukocyte Esterase NEGATIVE (NEGATIVE) Urine RBC 1-3 /hpf /hpf (0-3) Urine WBC 1-3 /hpf /hpf (0-3) Ur Epithelial Cells TRACE /lpf /lpf (NONE-1+) Urine Bacteria 1+ /hpf H /hpf (NONE SEEN) Urine Mucus TRACE /lpf /lpf (NONE-1+) Urine Glucose NEGATIVE (NEGATIVE) Medications Given: Discontinued Medications Sodium Chloride (Ns) 1,000 mls @ 0 mls/hr IV ONCE ONE; Wide Open PRN Reason: Protocol Stop: 01/11/18 16:43 Last Admin: 01/11/18 16:48 Dose: 1,000 mls Lorazepam (Ativan Injection) 1 mg IVP EDNOW ONE Stop: 01/11/18 18:10 Last Admin: 01/11/18 18:26 Dose: 1 mg Ondansetron HCl (Zofran Odt) 4 mg PO EDNOW ONE Stop: 01/11/18 16:06 Last Admin: 01/11/18 16:10 Dose: 4 mg Departure - Departure Disposition: Home, Routine, Self-Care Clinical Impression: Sacroiliitis Condition: Good Instructions: Sacroiliitis (ED), Lower Back Exercises (ED) Additional Instructions: 1. Take Ibuprofen or Motrin 600 mg by mouth three times a day. 2. Lidocaine patches as needed for pain 3. Laboratory testing in the emergency department today demonstrates no evidence of an infection, critical anemia or significant electrolyte disturbance. 4. I do believe the your having musculoskeletal back pain and may have have a mild viral illness. Referrals: Lázaro Lazcano DO [Primary Care Provider] - As per Instructions
[2018-01-11 17:03] LABS: PLATELET COUNT 360 10^3/uL (150-400)
[2018-01-11] MEDS ORDERED: LORazepam 2 MG/ML INJ IVP ONE (18:09)
[2018-01-11] MEDS ORDERED: KETOROLAC 15 MG/1 ML SDV IVP ONE (19:03)
[2018-01-11 20:19] VITALS: BP 122/97
== END 2018-01-11 20:19 | disposition home or self-care (01) ==
DX: M46.1 Sacroiliitis, not elsewhere classified (principal); E86.9 Volume depletion, unspecified; F17.200 Nicotine dependence, unspecified, uncomplicated
CPT/HCPCS: 96374; J1885; J2060

== ENCOUNTER 2018-03-07 12:13 | Emergency (ER) | payer MEDICAID ==
[2018-03-07] MEDS ORDERED: OXYCODONE/APAP 5/325 TAB PO ONE (13:05)
--- NOTE | 2018-03-07 13:09 | EDPHY ---
General Time Seen by Provider: 03/07/18 12:44 Narrative: CLINICAL IMPRESSION: Left knee pain ASSESSMENT/PLAN: 27-year-old female presents to the emergency department with left knee pain after injuring the knee [place]ampoline park. Patient has reported history of numerous patellar dislocations but clinically does not present with patellar dislocation or knee dislocation. She is neurovascular intact. No proximal or distal joint injury. No open wounds. X-rays negative for acute bony abnormality. Patient very upset that she was not given an emergent MRI scan today. I explained her that this could be performed on an outpatient basis and I encouraged her to follow up with her primary orthopedic provider. She declined knee brace, but was provided crutches. Rice treatment reviewed, pain meds prescribed, warning signs return to ED sooner alignment discharge. DIFFERENTIAL DX: Differential includes but not limited to acute fracture, strain/sprain, joint dislocation, soft tissue contusion ED PROCEDURES: Patient refused knee splint. Crutches provided ED COURSE: 1:50pm: xrays reviewed. No acute osseous abnormality identified. Patient very upset that she is not getting an MRI to look at her meniscus. I explained that this can be ordered as an outpatient through her orthopedic provider. She is already established with Dr. Hernandez. I also gave her referral to Dr. Sosa. CHIEF COMPLAINT: Left knee pain HPI: 27-year-old female presents to the emergency department with left knee pain after she injured the knee at a local trampoline park. Patient reports he was climbing the wall of the trampoline park when her patella dislocated. She reports this is happened over a dozen times in the past. She has followed up with Dr. Hernandez in the past. She does not remember her when her last MRI scan was. She is requesting an MRI scan today. She does not currently have a patellar dislocation. She reports no numbness or loss of sensation to the foot or toes, calf pain or lower leg pain. PAST MEDICAL HISTORY: Chronic left knee pain Pertinent Past Surgical History: None reported Social History: See nursing triage notes REVIEW OF SYSTEMS: All other systems negative Constitutional: No fever, no chills Musculoskeletal: No deformity, + joint pain Skin: No rashes, color change or open wounds. Neurological: No sensory loss or weakness. PHYSICAL EXAM: General Appearance: Alert, oriented, appropriate for age, cooperative, NAD, well hydrated, non-toxic appearing, VSS, no hypoxia. Neurological: Alert and oriented x 3, normal sensation and strength of extremities Skin: Warm, dry, no rashes, no nodules on palpation. Musculoskeletal: No clinical evidence of patellar dislocation or knee dislocation. Distal neurovascular exam intact. Color and temperature symmetric. No proximal or lower leg pain. Reproducible pain to the medial aspect of the knee. Patient is wailing in discomfort and refusing range of motion testing. I am unable to do anterior drawer testing and Gisselle testing. MEDICAL DECISION MAKING: Patient was seen independently. Secondary supervising physician at time of evaluation was Dr. Forrester. Diagnosis: Left knee pain . New, requires workup Summary: See assessment and plan for summary of ED visit Independent visualization of images, tracing, or specimens yes. Patient Progress: Stable. - Diagnostics Imaging Results: Imaging Impressions Knee X-Ray 03/07/18 12:34 Impression: No acute osseous findings. - History Smoking Status: Light smoker - Objective Vital Signs: Initial Vital Signs Temperature (C) 37.1 C 03/07/18 12:20 Heart Rate 97 03/07/18 12:20 Respiratory Rate 16 03/07/18 12:20 Blood Pressure 143/95 H 03/07/18 12:20 O2 Sat (%) 98 03/07/18 12:20 O2 Delivery Mode Room Air Allergies/Adverse Reactions: No Known Allergies Allergy (Verified 03/07/18 12:22) Home Medications: Medication Instructions Recorded Adderall 10 MG (*) 06/20/16 BENADRYL 06/20/16 ACETAMINOPHEN 07/18/16 Aleve 220 MG (*) 07/18/16 Ibuprofen 07/18/16 Hydrocodone/APAP 5/325 [[place] 1 tab PO Q6 PRN #10 tab 06/18/17 5/325 (RX)] Hydroxyzine HCl 06/18/17 Ondansetron Odt [Zofran Odt] 4 mg PO Q4PRN PRN #10 tab 08/20/17 oxyCODONE/APAP 5/325 [Percocet 1 tab PO Q6 #10 tab 08/20/17 5/325] Lidocaine [Lidoderm] 1 each TP AD PRN #15 adh..patch 01/11/18 Lidocaine [Lidoderm] 1 each TP AD PRN #15 adh..patch 01/11/18 oxyCODONE/APAP 5/325 [Percocet 1 - 2 tab PO Q4-6PRN PRN #10 tab 03/07/18 5/325] Medications Given: Discontinued Medications Oxycodone/Acetaminophen (Percocet 5/325) 2 tab PO EDNOW ONE Stop: 03/07/18 13:06 Last Admin: 03/07/18 13:13 Dose: 2 tab Departure - Departure Disposition: Home, Routine, Self-Care Clinical Impression: Knee pain, left Qualifiers: Chronicity: acute Qualified Code(s): M25.562 - Pain in left knee Condition: Good Instructions: Oxycodone/Acetaminophen (By mouth), Knee Pain (ED) Additional Instructions: DISCHARGE INSTRUCTIONS FROM YOUR DOCTOR Thank you for visiting our emergency department today. Please keep in mind that discharge from the emergency department does not mean that there is nothing wrong - it simply means that we have not identified an emergency condition that requires further evaluation or treatment in the hospital. You should always plan to follow up with primary care for re-evaluation of your condition in the next 2-3 days. If you have been referred to a specialist, please call as soon as possible (today or tomorrow) to schedule your follow up appointment at the appropriate time. THERE WAS NO UNDERLYING FRACTURE OR BONY ABNORMALITY IDENTIFIED ON X-RAYS OF HER KNEE TODAY. IT IS IMPORTANT FOR YOU TO SEE AN ORTHOPEDIC PROVIDER, YOU CAN RETURN TO DR. HERNANDEZ OR THE ON-CALL ORTHOPEDIC PROVIDER WAS GIVEN REFERRAL TODAY. PAIN MEDS WERE PRESCRIBED TO USE IF NEEDED. DO NOT DRIVE OR DRINK ALCOHOL WHILE TAKING NARCOTIC PAIN MEDICATION. PLEASE BE AWARE, NARCOTICS CAN CAUSE CONSTIPATION, LETHARGY, AND INCREASE YOUR RISK OF FALLING. DO NOT TAKE TYLENOL AT THE SAME TIME VICODIN OR PERCOCET. RETURN TO THE EMERGENCY DEPARTMENT FOR SEVERE OR WORSENING PAIN, LOSS OF SENSATION TO FOOT TOES OR LOWER LEG, SKIN COLORATION CHANGE TO LOWER LEG, SIGNIFICANT OR SEVERE SWELLING TO THE LEG, OR ANY OTHER CONCERNS. People present with illnesses and injuries in different ways, and it is always possible that we have missed something. You may always return for re-evaluation if symptoms worsen or if they are not improving or if you develop new/different symptoms. Again, thank you for choosing our emergency department. We hope that you feel better. Referrals: NONE *PRIMARY CARE P,. [Primary Care Provider] - As per Instructions Clovis Sosa MD [Medical Doctor] - As per Instructions Prescriptions: oxyCODONE/APAP 5/325 [Percocet 5/325] 1 - 2 tab PO Q4-6PRN PRN #10 tab PRN Reason: Pain, Breakthrough
[2018-03-07 14:26] VITALS: BP 140/85
== END 2018-03-07 14:25 | disposition home or self-care (01) ==
DX: M25.562 Pain in left knee (principal)

== ENCOUNTER → 2018-03-08 | Outpatient (CLI) | payer MEDICAID | LOC: FIMAGING 13:27 | PROVIDERS: ATTEND Orthopaedic Surgery Hand Surgery | DX: M25.561 Pain in right knee (principal) ==

== ENCOUNTER → 2018-03-09 | Outpatient (CLI) | payer MEDICAID | LOC: FIMAGING 08:02 | PROVIDERS: ATTEND Orthopaedic Surgery Hand Surgery | DX: S83.242A Other tear of medial meniscus, current injury, left knee, initial encounter (principal); S83.002A Unspecified subluxation of left patella, initial encounter ==

== ENCOUNTER 2018-04-01 09:19 | Observation (INO) | payer MEDICAID ==
--- NOTE | 2018-04-01 06:26 | PDHPUP ---
History & Physical Update H&P update statement: This history and physical update is based on an assessment of the patient which was completed after admission or registration (within 24 hours), but prior to the surgery/procedure. H&P update: no change in patient's condition since H&P completed
[~2018-04-01 09:19] MED LIST: BUPIVACAINE/EPI 0.5% 30 ML SDV ONE; LR 1,000 ML IV SCH; ceFAZolin 2 GM/DEXTROSE 100 ML IV ONE
[2018-04-01] MEDS ORDERED: PROPOFOL 200 MG/20 ML VIAL ONE ×2 (09:41→11:20)
[2018-04-01] MEDS ORDERED: LR 1,000 ML IV ONE (09:42)
[2018-04-01] MEDS ORDERED: LIDOCAINE 1% 2 ML INJ ID PRN (09:42)
[2018-04-01] MEDS ORDERED: ROPIVACAINE HCL 100 MG/20 ML INJ ONE (09:44)
[2018-04-01] MEDS ORDERED: LIDOCAINE 2% 5 ML SDV ONE (09:45)
[2018-04-01] MEDS ORDERED: MIDAZOLAM 2 MG/2 ML VIAL ONE ×2 (10:27)
--- NOTE | 2018-04-01 10:43 | PDANEPAE ---
ANE History of Present Illness left MPFL repair ANE Past Medical History - Cardiovascular History Hx Hypertension: No Hx Arrhythmias: No Hx Chest Pain: No Hx Coronary Artery / Peripheral Vascular Disease: No Hx CHF / Valvular Disease: No Hx Palpitations: No - Pulmonary History Hx COPD: No Hx Asthma/Reactive Airway Disease: No Hx Recent Upper Respiratory Infection: No Hx Oxygen in Use at Home: No Hx Sleep Apnea: No Sleep Apnea Screening Result - Last Documented: Negative - Neurologic History Hx Cerebrovascular Accident: No Hx Seizures: No Hx Dementia: No - Endocrine History Hx Diabetes: No Hypothyroid: No Hyperthyroid: No Obesity: no - Renal History Hx Renal Disorders: No - Liver History Hx Hepatic Disorders: No - Neurological & Psychiatric Hx Hx Neurological and Psychiatric Disorders: Yes Neurological / Psychiatric History Comment: adhd. ANXIETY - Cancer History Hx Cancer: No - Congenital Disorder History Hx Congenital Disorders: No - GI History Hx Gastrointestinal Disorders: Yes Gastrointestinal History Comment: GERD - Other Health History Other Health History: wears contacts and/ or glasses - Chronic Pain History Chronic Pain: No - Surgical History Prior Surgeries: 07/24/15 exp lap and lap appY. ANKLE L SURGERY ANE Review of Systems Review of systems is: negative Review of Systems: - Exercise capacity METS (RN): 5 METS ANE Patient History - Allergies Allergies/Adverse Reactions: No Known Allergies Allergy (Verified 03/07/18 12:22) - Home Medications Home medications: home medication list seen and reviewed Home Medications: Adderall 10 MG (*) 06/20/16 [Last Taken 1 Day Ago ~03/31/18] ACETAMINOPHEN 07/18/16 [Last Taken 03/30/18] Aleve 220 MG (*) 07/18/16 [Last Taken 07/15/16] Ibuprofen 07/18/16 [Last Taken 1 Week Ago ~03/25/18] Hydroxyzine HCl 06/18/17 [Last Taken 1 Day Ago ~03/31/18] - NPO status NPO Since - Liquids (Date): 03/31/18 NPO Since - Liquids (Time): 20:00 NPO Since - Solids (Date): 03/31/18 NPO Since - Solids (Time): 20:00 - Anes Hx Anes Hx: no prior problems - Smoking Hx Smoking Status: Current some day smoker - Family Anes Hx Family Hx Anesthesia Complications: none ANE Labs/Vital Signs - Vital Signs Blood Pressure: 129/90 Heart Rate: 70 Respiratory Rate: 18 O2 Sat (%): 98 Height: 160.02 cm Weight: 90.718 kg ANE Physical Exam - Airway Neck exam: FROM Mallampati Score: Class 2 Mouth exam: normal dental/mouth exam - Pulmonary Pulmonary: no respiratory distress - Cardiovascular Cardiovascular: regular rate and rhythym - ASA Status ASA Status: II ANE Anesthesia Plan Anesthesia Plan: GA w LMA Regional Anesthesia: single shot NB, adductor canal FNB
[2018-04-01] MEDS ORDERED: fentaNYL 100 MCG/2 ML INJ ONE ×4 (10:46→13:50)
[2018-04-01] MEDS ORDERED: DEXAMETHASONE 4 MG/ML VIAL ONE (10:59)
[2018-04-01] MEDS ORDERED: KETOROLAC 30 MG/1 ML SDV ONE (10:59)
[2018-04-01] MEDS ORDERED: ONDANSETRON 4 MG/2 ML VIAL ONE (10:59)
[2018-04-01] MEDS ORDERED: HYDROCODONE/APAP 5/325 TAB PO PRN ×2 (11:09→11:22)
[2018-04-01] MEDS ORDERED: PROMETHAZINE HCL 25 MG/ML INJ IVP PRN (11:22)
[2018-04-01] MEDS ORDERED: ALBUTEROL 3 ML DEYVIAL IH PRN (11:22)
[2018-04-01] MEDS ORDERED: ONDANSETRON 4 MG/2 ML VIAL IVP PRN ×2 (11:22→16:45)
[2018-04-01] MEDS ORDERED: DIAZEPAM 5 MG/ML 1 ML SYR IVP PRN (11:22)
[2018-04-01] MEDS ORDERED: METOCLOPRAMIDE 10 MG/2 ML VIAL IVP PRN (11:22)
[2018-04-01] MEDS ORDERED: ACETAMINOPHEN 500 MG TAB PO PRN (11:22)
[2018-04-01] MEDS ORDERED: LR 500 ML IV PRN (11:22)
[2018-04-01] MEDS ORDERED: NALOXONE HCL 0.4 MG/ML INJ IVP PRN (11:22)
--- NOTE | 2018-04-01 11:22 | POSTANESTH ---
Post Anesthetic Evaluation Cardiovascular Status: Normal, Stable Respiratory Status: Normal, Stable Level of Consciousness/Mental Status: Can Participate in Eval, Mildly Sleepy, Arousable Pain Control: Adequate, Prn Tx Ordered Nausea/Vomiting Control: Adequate, Prn Tx Ordered Complications Possibly Related to Anesthesia: None Noted
--- NOTE | 2018-04-01 12:07 | POSTOPPROG ---
Post Op Note Date of Operation: 04/01/18 Surgeon: George Szymanski Australian Rules Footballer: donn Anesthesiologist: filemon Anesthesia: GET(General Endotracheal) Pre-op Diagnosis: pf instability left knee Post-op Diagnosis: same Indication: same Procedure: mpfl recon Inf/Abcess present in the surg proc area at time of surgery?: No Depth: Superfical (Skin SQ) EBL: 50-100
[2018-04-01] MEDS: fentaNYL 100 MCG/2 ML INJ IVP PRN ×5 (12:23→14:06)
[2018-04-01] MEDS ORDERED: oxyCODONE IR 5 MG TAB ONE ×3 (12:50→16:57)
[2018-04-01] MEDS: oxyCODONE IR 5 MG TAB PO PRN ×5 (12:51→22:56)
[2018-04-01] MEDS ORDERED: DIAZEPAM 5 MG/ML 1 ML SYR ONE ×2 (13:18→14:05)
[2018-04-01] MEDS ORDERED: HYDROmorphONE/DILAUDID 2 MG/ML INJ ONE (14:05)
[2018-04-01] MEDS: HYDROmorphONE/DILAUDID 2 MG/ML INJ IVP PRN ×4 (14:08→15:27)
[2018-04-01] MEDS ORDERED: ACETAMINOPHEN 325 MG TAB PO PRN (16:45)
[2018-04-01] MEDS ORDERED: ONDANSETRON DISINTEGRATING 4 MG TAB PO PRN (16:45)
[2018-04-01] MEDS ORDERED: ACETAMINOPHEN 500 MG TAB ONE (16:57)
--- NOTE | 2018-04-01 17:28 | PDGENHP ---
<Sharon Mittal - Last Filed: 04/01/18 18:58> History and Physical - Chief Complaint Pain control - History of Present Illness This is a 27 y/o female who was scheduled for an outpatient reconstruction surgical procedure for her left patella (MPFL). Surgery was performed however post-operatively is enduring intractable pain. Date of injury was 03/07/18 while she was at the [facility]. She has a history of dislocating her patella d/ t a shallow patella groove. She was evaluated on 03/14/[address] Sosa; MRI at that time revealed grade I articuolar cartilage disease patella with mild lateral subluxation of patella. High grade partial versus complete tear of the posteromedial retinaculum and medial patellofemoral ligament insertion of the adductor tubercle. Mild tendinopathy and partial tear proximal patellar tendon. It was noted at the time of evaluation she had greater pain than what is normal for her type of dislocation and it was recommended she follow up with a pain specialist and physical therapy post-operatively. She is being admitted for observation and pain management. Past Medical History 1. Vitamin D deficiency 2. Overweight 3. Anxiety disorder 4. Recurrent panic disorder 5. Tobacco use 6. ADHD 7. GERD Past Surgical History 1. Ankle surgery (July 2016) Social 1. 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 Denies tobacco or illicit drug use. Drinks 2-3 alcohol beverages/week. History Information - Allergies/Home Medication List Allergies/Adverse Reactions: No Known Allergies Allergy (Verified 03/07/18 12:22) Home Medications: Adderall 10 MG (*) 06/20/16 [Last Taken 1 Day Ago ~03/31/18] ACETAMINOPHEN 07/18/16 [Last Taken 03/30/18] Aleve 220 MG (*) 07/18/16 [Last Taken 07/15/16] Ibuprofen 07/18/16 [Last Taken 1 Week Ago ~03/25/18] Hydroxyzine HCl 06/18/17 [Last Taken 1 Day Ago ~03/31/18] I have personally reviewed and updated: family history, medical history, social history, surgical history Past Medical History: See HPI list - Surgical History Additional surgical history: See HPI list - Family History Positive for: non-pertinent - Social History Smoking Status: Former smoker Alcohol Use: Rarely Drug Use: None Review of Systems Review of Systems: ROS: 10pt was reviewed & negative except for what was stated in HPI & below Constitutional: Reports: recent injury EENMT: Reports: no symptoms Cardiac: Reports: no symptoms Respiratory: Reports: no symptoms Gastrointestinal: Reports: no symptoms Genitourinary: Reports: no symptoms Muscolosketal: Reports: joint pain, muscle pain (Left knee) Skin: Reports: no symptoms Neurological: Reports: anxiety Hematologic/Lymphatic: Reports: no symptoms Immunologic/Allergy: Reports: no symptoms Physical Exam Physical Exam: Temp Pulse Resp BP Pulse Ox 37 C 70 20 108/57 L 99 04/01/18 13:53 04/01/18 10:42 04/01/18 17:07 04/01/18 17:07 04/01/18 17:20 Constitutional: obese, uncomfortable Eyes: PERRL, anicteric sclera, EOMI Ears, Nose, Mouth, Throat: moist mucous membranes, hearing normal, ears appear normal, no oral mucosal ulcers Cardiovascular: regular rate and rhythym, no murmur, rub, or gallop, No edema Peripheral Pulses: 2+: dorsalis-pedis (R) (Radial 2+), dorsalis-pedis (L) ( Radial 2+) Respiratory: no respiratory distress, no rales or rhonchi, clear to auscultation Gastrointestinal: normoactive bowel sounds, soft, non-tender abdomen, no palpable masses Genitourinary: no bladder fullness, no bladder tenderness Skin: warm, normal color, no rashes or abrasions, no fluctuance, no induration, No mottled Musculoskeletal: joint tenderness (L knee), pain with ROM Neurologic: AAOx3, sensation intact bilaterally, CN II-XII Intact Psychiatric: interacting appropriately, not encephalopathic, thought process linear, anxious Lymph, Heme, Immunologic: no cervical LAD, no supraclavicular LAD Lab Data & Imaging Review 04/01/18 17:37 04/01/18 17:37 Assessment & Plan Plan: This is a 27 y/o with chronic patella dislocations who sustained a left patella dislocation earlier this month and today, underwent surgical reconstruction ( MPFL) by Dr. Szymanski. Subsequently, she continues to have intractable pain. 1. Pain s/p left patella surgical interventions: Reviewed PDMP - minimal [place]/ Percocet filled throughout 2018 (max #50) -Pt has received multiple medications in attempts to manage her pain including: celebrex, tylenol, valium, fentanyl, Dilaudid and Oxy IR. -manage pain PO/IVP PRN, Tylenol 1g Q8H scheduled -Continue to ice and elevate extremity -OT/PT to evaluate 2. ADHD: on Adderall. 3. Anxiety: might be a factor contributing to her higher than normal response to surgical interventions -Recommend pain specialist outpatient Diet: Regular Code: Full VTE ppx: SCDs Dispo: Admit to obs <DanishaHattie pearson - Last Filed: 04/01/18 19:18> History and Physical - History of Present Illness Review of Systems Review of Systems: Physical Exam Physical Exam: Temp Pulse Resp BP Pulse Ox 36.9 C 66 16 118/50 L 90 L 04/01/18 18:45 04/01/18 18:45 04/01/18 18:45 04/01/18 18:45 04/01/18 18:45 O2 (L/minute) 1 Lab Data & Imaging Review 04/01/18 17:37 04/01/18 17:37 WBC 10.60 10^3/uL (3.80-9.50) H 04/01/18 17:37 RBC 4.11 10^6/uL (4.18-5.33) L 04/01/18 17:37 Hgb 12.5 g/dL (12.6-16.3) L 04/01/18 17:37 Hct 38.0 % (38.0-47.0) 04/01/18 17:37 MCV 92.5 fL (81.5-99.8) 04/01/18 17:37 MCH 30.4 pg (27.9-34.1) 04/01/18 17:37 MCHC 32.9 g/dL (32.4-36.7) 04/01/18 17:37 RDW 12.7 % (11.5-15.2) 04/01/18 17:37 Plt Count 337 10^3/uL (150-400) 04/01/18 17:37 MPV 9.0 fL (8.7-11.7) 04/01/18 17:37 Neut % (Auto) 88.8 % (39.3-74.2) H 04/01/18 17:37 Lymph % (Auto) 9.2 % (15.0-45.0) L 04/01/18 17:37 Elliott % (Auto) 1.6 % (4.5-13.0) L 04/01/18 17:37 Eos % (Auto) 0.0 % (0.6-7.6) L 04/01/18 17:37 Baso % (Auto) 0.1 % (0.3-1.7) L 04/01/18 17:37 Nucleat RBC Rel Count 0.0 % (0.0-0.2) 04/01/18 17:37 Absolute Neuts (auto) 9.41 10^3/uL (1.70-6.50) H 04/01/18 17:37 Absolute Lymphs (auto) 0.98 10^3/uL (1.00-3.00) L 04/01/18 17:37 Absolute Monos (auto) 0.17 10^3/uL (0.30-0.80) L 04/01/18 17:37 Absolute Eos (auto) 0.00 10^3/uL (0.03-0.40) L 04/01/18 17:37 Absolute Basos (auto) 0.01 10^3/uL (0.02-0.10) L 04/01/18 17:37 Absolute Nucleated RBC 0.00 10^3/uL (0-0.01) 04/01/18 17:37 Immature Gran % 0.3 % (0.0-1.1) 04/01/18 17:37 Immature Gran # 0.03 10^3/uL (0.00-0.10) 04/01/18 17:37 Sodium 137 mEq/L (135-145) 04/01/18 17:37 Potassium 4.5 mEq/L (3.5-5.2) 04/01/18 17:37 Chloride 109 mEq/L (97-110) 04/01/18 17:37 Carbon Dioxide 23 mEq/l (22-31) 04/01/18 17:37 Anion Gap 5 mEq/L (6-14) L 04/01/18 17:37 BUN 8 mg/dL (7-23) 04/01/18 17:37 Creatinine 0.7 mg/dL (0.6-1.0) 04/01/18 17:37 Estimated GFR > 60 04/01/18 17:37 Glucose 121 mg/dL (70-100) H 04/01/18 17:37 Calcium 9.0 mg/dL (8.5-10.4) 04/01/18 17:37 Assessment & Plan Plan: Patient seen and evaluated independently and care plan reviewed with CHRIS Mittal, agree with her assessment and plan as outlined above. Please see separate documentation for further details.
[2018-04-01 17:59] LABS: PLATELET COUNT 337 10^3/uL (150-400)
[2018-04-01] MEDS ORDERED: HYDROmorphONE/DILAUDID 1 MG/ML INJ IVP PRN (18:28)
--- NOTE | 2018-04-01 19:22 | HOSPPROG ---
Hospitalist Progress Note Assessment/Plan: This is a 27 y/o with chronic patella dislocations who sustained a left patella dislocation earlier this month and today, underwent surgical reconstruction ( MPFL) by Dr. Szymanski. Subsequently, she continues to have intractable pain. # s/p patellar tendon repair: for multiple patella dislocations, typically an outpatient procedure, patient to be observed overnight due to intractable pain as next # pain: in the setting of above but present prior to surgery and per ortho notes , pain noted to be out of proportion to what is expected for this type of injury , recommendation was for f/u with pain management doctor though patient previously declined that recommendation. Will attempt to manage on lowest dose opiates possible, at least in part due to anxiety likely # anxiety: likely contributing to pain, valium as needed # ADHD: on adderall as an op, will hold for now # observation status Patient discussed with Dr. Szymanski as well as with CHRIS Mittal, please see her H&P for further details. Objective: Vital Signs Temp Pulse Resp BP Pulse Ox 36.9 C 66 16 118/50 L 90 L 04/01/18 18:45 04/01/18 18:45 04/01/18 18:45 04/01/18 18:45 04/01/18 18:45 Laboratory Results 04/01/18 17:37 04/01/18 17:37 03/31/18 04/01/18 04/02/18 05:59 05:59 05:59 Intake Total 390 Output Total 700 Balance -310 ICD10 Worksheet Patient Problems: Problems Problem Status Onset Abdominal pain Acute Acute appendicitis Acute
[2018-04-01] MEDS: ACETAMINOPHEN 500 MG TAB PO SCH (22:57)
[2018-04-02] MEDS: oxyCODONE IR 5 MG TAB PO PRN ×5 (02:13→14:05)
[2018-04-02 04:59] LABS: PLATELET COUNT 308 10^3/uL (150-400)
[2018-04-02] MEDS: ACETAMINOPHEN 500 MG TAB PO SCH ×2 (05:06→11:04)
--- NOTE | 2018-04-02 07:56 | SOAPPROG ---
SOAP Progress Note Assessment/Plan: Assessment: pain s/p mpfl Plan:d/c when pain stable needs to make appointment with pain management doctor dvt precautions wbat with brace locked in extension NO ROM CURRENTLY 04/02/18 07:55 Subjective: pain Objective: Vital Signs Temp Pulse Resp BP Pulse Ox 36.5 C 65 16 111/64 93 04/02/18 07:17 04/02/18 07:17 04/02/18 07:17 04/02/18 07:17 04/02/18 07:17 Laboratory Results 04/02/18 04:32 04/02/18 04:32 04/01/18 04/02/18 04/03/18 05:59 05:59 05:59 Intake Total 1090 Output Total 1600 Balance -510 dressing intact intact pf,df,ehl toes warm and pink neg homans otis ICD10 Worksheet Patient Problems: Problems Problem Status Onset Abdominal pain Acute Acute appendicitis Acute
[2018-04-02] MEDS ORDERED: ASPIRIN 325 MG TAB PO SCH (09:00)
--- NOTE | 2018-04-02 09:03 | ASMTLACE ---
RACHEAL Length of stay for Answers: 1 day current admission Acuity / Level of Answers: No Care: Did the patient have an inpatient admission? # of Emergency department Answers: 1-2 visits in the last 6 months Social determinants Answers: Mental health diagnosis (anxiety, depression, pers onality disorders, etc.) Score: 5 Date Signed: 04/02/2018 09:02 AM Electronically Signed By:Kari Contreras RN
--- NOTE | 2018-04-02 13:20 | HOSPPROG ---
Hospitalist Progress Note Assessment/Plan: This is a 27 y/o with chronic patella dislocations who sustained a left patella dislocation earlier this month and today, underwent surgical reconstruction ( MPFL) by Dr. Szymanski. She had intractable pain and was admitted for further care. # Patellar dislocation s/p patellar tendon repair -having ongoing pain/ will do a trial of Robaxin -Dr Szymanski is fine to try ibuprofen in addition -was able to get up and walk w PT w use of the walker # anxiety: likely contributing to pain, Valium as needed # ADHD: on Adderall #obesity w a BMI of 35.4 #plan: will see how she does w the Robaxin, explained to the patient and her mom she is at higher risk for falling due to the relaxant. They are aware but want to try it, she describes spasms in her left leg that wake her up. Subjective: Georgette said the spasms in the left leg are causing much of the pain. Objective: Vital Signs Temp Pulse Resp BP Pulse Ox 36.7 C 68 16 109/65 93 04/02/18 11:08 04/02/18 11:08 04/02/18 11:08 04/02/18 11:08 04/02/18 11:08 Laboratory Results 04/02/18 04:32 04/02/18 04:32 04/01/18 04/02/18 04/03/18 05:59 05:59 05:59 Intake Total 1090 Output Total 1600 300 Balance -510 -300 - Physical Exam Constitutional: obese, uncomfortable Eyes: PERRL Ears, Nose, Mouth, Throat: hearing normal Respiratory: no respiratory distress Skin: warm, other (left knee area wrapped, splint in place) Musculoskeletal: muscular tenderness Neurologic: AAOx3 Psychiatric: not encephalopathic, anxious ICD10 Worksheet Patient Problems: Problems Problem Status Onset Abdominal pain Acute Acute appendicitis Acute
--- NOTE | 2018-04-02 13:26 | ASMTCMCOM ---
CM Note CM Note Notes: Pt is a 27 y/o female admitted for a scheduled MPFL surgery w/ Dr. Szymanski. OT is recommending HC. CM spoke to Dr. Nessa Isbell's PA and he reports that they do not want pt to have any type of HC services for at least two weeks. Pt will follow up in Dr. Szymanski's office after two weeks and at that point they will evaluate if pt needs HC or outpatient PT. CM made a referral to [facility]. [facility] is able to help pt find a pain specialist and help secure DME. Pt does not have any needs at this time. CM available for changes. Plan: Independent Date Signed: 04/02/2018 01:26 PM Electronically Signed By:KENAN Olson
[2018-04-02] MEDS ORDERED: METHOCARBAMOL 750 MG TAB PO PRN (13:37)
[2018-04-02] MEDS ORDERED: IBUPROFEN 600 MG TAB PO ONE (14:20)
[2018-04-02 15:11] VITALS: BP 100/54
[2018-04-02] MEDS ORDERED: HYDROCODONE/APAP 5/325 TAB PO PRN (16:56)
[2018-04-02] MEDS ORDERED: IBUPROFEN 200 MG TAB PO PRN (20:00)
[2018-04-02] MEDS ORDERED: hydrOXYzine HCL 25 MG TAB PO SCH (21:00)
[2018-04-03] MEDS ORDERED: DEXTROAMPHETAMINE PO SCH (09:00)
[2018-04-03] MEDS ORDERED: AMPHETAMINE PO SCH (09:00)
[2018-04-03] MEDS ORDERED: ADDERALL 10 MG TAB PO PRN (11:00)
--- NOTE | 2018-04-03 13:22 | GDS ---
[f rep st] DISCHARGE SUMMARY ADMISSION DIAGNOSIS: Intractable pain following left knee medial patellofemoral ligament reconstruct ion. POSTOPERATIVE DIAGNOSIS: Intractable pain following left knee medial patellofemoral ligament reconst ruction. PROCEDURE: Left knee medial patellofemoral ligament reconstruction. HISTORY OF PRESENT ILLNESS: The patient is a 27-year-old young woman who has recurrent instability t o her knee cap. She presents for elective allograft MPFL reconstruction. HOSPITAL COURSE: The patient was admitted to the hospital from the postop area given intractable gibson n and poor pain tolerance. She continued on IV medicine overnight. At the time of discharge, she is tolerating an oral diet. Pain is well controlled on oral medicines and she is voiding without diffi culty. DISCHARGE ACTIVITY: She is weightbearing as tolerated. The brace locked in extension. No range of motion. Encouraged ankle and calf range of motion. Seek attention for increasing redness, swelling, drainage, discharge, or other focal complaints. /[id number]/MODL
--- NOTE | 2018-04-03 13:33 | GOP ---
[f rep st] OPERATIVE REPORT DATE OF OPERATION: 04/01/2018 SURGEON: George Szymanski MD DRY ROOM ATTENDANT: Tito Espinoza, neurosurgical physician assistant, who was a medical necessity for the entirety of the camille e. PREOPERATIVE DIAGNOSIS: Left knee recurrent patellar instability. POSTOPERATIVE DIAGNOSIS: Left knee recurrent patellar instability. PROCEDURE PERFORMED: Left knee medial patellofemoral ligament reconstruction with allograft tendon. FINDINGS: SPECIMENS: To Pathology: None. DESCRIPTION OF PROCEDURE: The patient was identified in the preanesthesia area. The left knee clear ly demarcated as the operative site with an indelible marker. She was given 2 g of Ancef intravenous ly in route to the operative suite. In the OR, general endotracheal anesthesia was administered. At tention was turned to the left knee, which was sterilely prepped and draped in usual fashion. Approp riate time-out procedure was carried out. The limb was then sterilely prepped and draped in usual fa shion. Exsanguinated with an Esmarch bandage. Tourniquet inflated to 275 mmHg. A medial parapatell ar incision was made and a medial epicondylar incision was made. They were carried sharply through t he skin and subcutaneous tissue to the subperiosteal area of the medial patella. A guide pin was the n placed at the superior pole of the patella and 15 mm inferior to this. These were then reamed to a depth of 25 mm using a previously prepared allograft and an Arthrex button. The allograft was secur ed both proximally and distally with a BioComposite screw. This was then tunneled subcutaneously to the medial epicondylar area. Guide pin was then placed proximal and dorsal to the medial epicondyle and over reamed with a reamer to the lateral cortex. The ACL TightRope was then drawn through, flipp ed on the lateral cortex and the graft was sequentially tight with flexion-extension across the knee. Ultimately, 20% subluxation of the patella was visualized or allowed with digital pressure through the flexion-extension arc. The wound was irrigated, closed in layers using #1 Ethibond, 0 Vicryl, 2- 0 Monocryl, and michelle in the skin. The margins were instilled with 20 cc of 0.5% Marcaine with epi nephrine. The patient was awakened extubated, taken to recovery room in good, stable condition. OPERATIVE INDICATIONS: The patient is a 27-year-old young woman with persistent pain and disability secondary to recurrent patellar instability. She has failed all attempts at conservative management. I have, therefore, recommended operative intervention. I have outlined the surgical procedure, ris ks, benefits, alternatives, she wished to proceed. Written consent was signed and placed in patient' s chart. TOTAL TOURNIQUET TIME: 35 minutes. COMPLICATIONS: None. IMPLANTS: As above. DISPOSITION: To the recovery room, then home. She is straight leg in an immobilizer. No range of m otion for the first 2 weeks. Encouraged with ankle and calf range of motion, and DVT precautions wer e given. /[id number]/MODL
== END 2018-04-02 17:40 | disposition home or self-care (01) ==
LOC: FSGY 09:19 → F3E 16:45 → F3N 18:32
PROVIDERS: ADMIT Nurse Practitioner; ATTEND Orthopaedic Surgery
DX: M25.362 Other instability, left knee (principal); S83.002A Unspecified subluxation of left patella, initial encounter; X50.9XXA Other and unspecified overexertion or strenuous movements or postures, initial encounter; Y92.89 Other specified places as the place of occurrence of the external cause; Y93.39 Activity, other involving climbing, rappelling and jumping off; E55.9 Vitamin D deficiency, unspecified; F41.0 Panic disorder [episodic paroxysmal anxiety]; F90.1 Attention-deficit hyperactivity disorder, predominantly hyperactive type; K21.9 Gastro-esophageal reflux disease without esophagitis
CPT/HCPCS: 27381; 97161; 97166; G0378; C1713; C1762; J0690; J1100; J1170; J1885; J2250; J2405; J2704; J2795; J3010; J3360

== ENCOUNTER → 2018-07-27 | Outpatient (CLI) | payer MEDICAID | LOC: FIMAGING 08:50 | PROVIDERS: ATTEND Physician Assistant | DX: M25.462 Effusion, left knee (principal) ==